=== PATIENT | female | born 1990 | race Caucasian/White ===

== ENCOUNTER 2018-08-31 21:23 | Emergency (ER) | payer OTHER ==
[2018-08-31 21:33] VITALS: RESP 20; TEMP 98.5
[2018-08-31] MEDS ORDERED: MORPHINE SULFATE 4 MG/ML SYRINGE IM STA (23:06)
[2018-08-31] MEDS ORDERED: KETOROLAC 30 MG/ML 1 ML VIAL IM STA (23:06)
--- NOTE | 2018-08-31 23:10 | ED ---
General Adult HPI - General Chief complaint: Dental/Oral Stated complaint: dental pain Time Seen by Provider: 08/31/18 22:22 Source: patient, RN notes reviewed, old records reviewed Mode of arrival: ambulatory Limitations: no limitations - History of Present Illness Initial comments: 27-year-old female presenting for evaluation of left lower abdominal pain. Patient had initial work done 2 days ago with drilling and root canal. She has a temporary filling and left posterior molar. She's had increased pain over the past 24 hours. She is currently on 800 mg of Motrin as well as amoxicillin. Denies fever or chills. Pain is localized to the affected tooth and associated jaw. No swelling. No drainage. Patient is otherwise healthy. Denies pre gnancy. - Related Data Home Medications Medication Instructions Recorded Confirmed Acetaminophen [Tylenol] 1,000 mg PO Q4-6H PRN 08/31/18 08/31/18 Amitriptyline HCl [Elavil] 25 mg PO HS 08/31/18 08/31/18 Ibuprofen [Motrin] 800 mg PO Q68H PRN 08/31/18 08/31/18 Pregabalin [Lyrica] 75 mg PO HS 08/31/18 08/31/18 Topiramate [Topamax] 50 mg PO BID 08/31/18 08/31/18 Allergies Allergy/AdvReac Type Severity Reaction Status Date / Time Sulfa (Sulfonamide Allergy Rash/Hives Verified 08/31/18 22:54 Antibiotics) Review of Systems ROS Statement: Those systems with pertinent positive or pertinent negative responses have been documented in the HPI. ROS Other: All systems not noted in ROS Statement are negative. Past Medical History Past Medical History: No Reported History History of Any Multi-Drug Resistant Organisms: None Reported Additional Past Surgical History / Comment(s): tarsal tunnel release Past Psychological History: No Psychological Hx Reported Smoking Status: Never smoker Past Alcohol Use History: Occasional Past Drug Use History: None Reported General Exam Limitations: no limitations General appearance: alert, in no apparent distress Head exam: Present: atraumatic, normocephalic Eye exam: Present: normal appearance, PERRL ENT exam: Present: other (Temporary filling Following left lower molar, no abscess, no cellulitis. No facial swelling) Neck exam: Present: normal inspection. Absent: tenderness, meningismus Respiratory exam: Present: normal lung sounds bilaterally. Absent: respiratory distress, wheezes Cardiovascular Exam: Present: regular rate, normal rhythm GI/Abdominal exam: Present: soft. Absent: distended, tenderness, guarding Course Vital Signs 08/31/18 21:29 Temperature 98.5 F Pulse Rate 88 Respiratory 20 Rate Blood Pressure 140/87 O2 Sat by Pulse 100 Oximetry Medical Decision Making - Medical Decision Making 27-year-old female requiring pain control for left lower molar status post root canal with temporary filling. No signs of infection. Patient is on antibiotics. She has an appointment in the morning for dental follow-up. She is seen at 11 PM. She is given a dose of Toradol and morphine in the emergency department. She will follow-up with her dentist in the morning as scheduled. Disposition Clinical Impression: Toothache, Acute pulpitis Disposition: HOME SELF-CARE Condition: Good Instructions (If sedation given, give patient instructions): Toothache (ED), Dental Caries (ED) Additional Instructions: Please follow up with your dentist in the morning. Is patient prescribed a controlled substance at d/c from ED?: No Referrals: Lucy Gale DO [Primary Care Provider] - 1-2 days Time of Disposition: 23:09
[2018-09-01 00:02] VITALS: BP 130/68; PULSE 90
== END 2018-08-31 23:50 | disposition home or self-care (01) ==
LOC: EC 21:23
DX: K04.01 Reversible pulpitis (principal); Z79.899 Other long term (current) drug therapy; Z88.2 Allergy status to sulfonamides
CPT/HCPCS: 99283; 96372 ×2; J2270; J1885

== ENCOUNTER 2019-06-13 21:10 | Outpatient (CLI) | payer BC ==
[2019-06-13 22:57] VITALS: BP 147/83; PULSE 122; RESP 18; TEMP 97.7
--- NOTE | 2019-06-16 14:38 | P.MSEPDOC ---
Presenting Problems - Arrival Data Date of Arrival on Unit: 06/13/19 Time of Arrival on Unit: 21:10 Mode of Transport: Ambulatory - Complaint OB-Reason for Admission/Chief Complaint: Possible Onset of Labor Comment: contraction onset 1929 and 5-6 min apart Medical History - Information : 1 Para: 0 Term: 0 : 0 Abortions: Spontaneous or Elective: 0 Number of Living Children: 0 - Gestational Age Gestational Age by SANDEEP (wks/days): 36 Weeks and 1 Days Review of Systems - Review of Systems Constitutional: No problems Breast: No problems ENT: No problems Cardiovascular: No problems Respiratory: No problems Gastrointestinal: No problems Genitourinary: No problems Musculoskeletal: No problems Neurological: No problems Skin: No problems Vital Signs - Temperature Temperature: 97.7 F Temperature Source: Temporal Artery Scan - Pulse Right Pulse Oximetery Pulse Rate: 122 - Respirations Respiratory Rate: 18 Oxygen Delivery Method: Room Air O2 Sat by Pulse Oximetry: 97 - Blood Pressure Right Arm Blood Pressure: 147/83 Blood Pressure Mean: 104 Blood Pressure Source: Automatic Cuff - Comment Vital Signs Comment: repeat BP and HR - 119/[address] Kinney in unit and notified of vital signs Medical Screen Scoring (Pre) - Cervical Exam Dilation: 1-3 cm = 1 Membranes: Intact - Uterine Contractions Frequency: > 5 minutes apart = 1 Duration: N/A Intensity: N/A - Maternal Vital Signs Maternal Temperature: N/A Maternal Blood Pressure: N/A Signs of Preeclampsia: N/A Maternal Respirations: N/A - Maternal Trauma Maternal Trauma: N/A - Assessment - Baby A Baseline FHR: 140 Heart Rate - NICHD Category: Category I (Normal) = 0 NST: Reactive Position: N/A Station: N/A - Total Score - Baby A Total Score - Baby A: 2 - Total Score - Baby B Total Score - Baby B: 2 - Total Score - Baby C Total Score - Baby C: 2 - Level of Risk - Baby A Level of Risk - Baby A: Low (0-5) - Level of Risk - Baby B Level of Risk - Baby B: Low (0-5) - Level of Risk - Baby C Level of Risk - Baby C: Low (0-5) Physician Notification (Pre) - Physician Notified Physician Notified Date: 06/13/19 Physician Notified Time: 21:44 New Order Received: Yes - Notification Comment Comment: order to recheck pts cervix after one hour if still the same okay to discharge with instructions Disposition - Disposition OB Disposition: Discharge to home Discharge Date: 06/13/19 Discharge Time: 22:35 I agree with the RN Medical Screening Exam: Yes Risk & Benefit of care provided described in d/c instruction: Yes Diagnosis: FALSE LABOR BEFORE 37 COMPLETED WEEKS OF GEST, THIRD TRI
== END 2019-06-13 22:35 | disposition home or self-care (01) ==
LOC: FBPOP 21:10
PROVIDERS: ATTEND Obstetrics & Gynecology Obstetrics
DX: O47.03 False labor before 37 completed weeks of gestation, third trimester (principal); Z3A.36 36 weeks gestation of pregnancy
CPT/HCPCS: 59025; 99213

== ENCOUNTER 2019-06-25 17:19 | Outpatient (CLI) | payer BC ==
[2019-06-25 19:09] VITALS: BP 123/84; PULSE 113; RESP 16; TEMP 97.9
--- NOTE | 2019-06-27 13:13 | P.MSEPDOC ---
Presenting Problems - Arrival Data Date of Arrival on Unit: 06/25/19 Time of Arrival on Unit: 18:46 Mode of Transport: Ambulatory - Complaint OB-Reason for Admission/Chief Complaint: Possible Onset of Labor Medical History - Information : 1 Para: 0 Term: 0 : 0 Abortions: Spontaneous or Elective: 0 Number of Living Children: 0 - Gestational Age Gestational Age by SANDEEP (wks/days): 37 Weeks and 6 Days Review of Systems - Review of Systems Constitutional: No problems Breast: No problems ENT: No problems Cardiovascular: No problems Respiratory: No problems Gastrointestinal: No problems Genitourinary: No problems Musculoskeletal: No problems Neurological: No problems Skin: No problems Vital Signs - Temperature Temperature: 97.9 F Temperature Source: Tympanic - Pulse Right Brachial Pulse Rate: 113 Pulse Assessment Method: Automatic Cuff - Respirations Respiratory Rate: 16 Oxygen Delivery Method: Room Air O2 Sat by Pulse Oximetry: 96 - Blood Pressure Right Arm Blood Pressure: 123/84 Blood Pressure Mean: 97 Blood Pressure Source: Automatic Cuff - Comment Vital Signs Comment: Pt states that she has not been feeling well and took some tylenol cold and sinus a litle while ago Medical Screen Scoring (Pre) - Cervical Exam Dilation: 1-3 cm = 1 Membranes: Intact - Uterine Contractions Frequency: > 5 minutes apart = 1 Duration: > 40 seconds = 2 Intensity: N/A - Maternal Vital Signs Maternal Temperature: N/A Maternal Blood Pressure: N/A Signs of Preeclampsia: N/A Maternal Respirations: N/A - Maternal Trauma Maternal Trauma: N/A - Assessment - Baby A Baseline FHR: 140 Heart Rate - NICHD Category: Category I (Normal) = 0 NST: Reactive Position: N/A Station: N/A - Total Score - Baby A Total Score - Baby A: 4 - Total Score - Baby B Total Score - Baby B: 4 - Total Score - Baby C Total Score - Baby C: 4 - Level of Risk - Baby A Level of Risk - Baby A: Low (0-5) - Level of Risk - Baby B Level of Risk - Baby B: Low (0-5) - Level of Risk - Baby C Level of Risk - Baby C: Low (0-5) Physician Notification (Pre) - Physician Notified Physician Notified Date: 06/25/19 Physician Notified Time: 18:46 New Order Received: Yes - Notification Comment Comment: D/c home to f/up with this week Disposition - Disposition OB Disposition: Physician follow up in office, Discharge to home Discharge Date: 06/25/19 Discharge Time: 18:50 I agree with the RN Medical Screening Exam: Yes Risk & Benefit of care provided described in d/c instruction: Yes Diagnosis: FALSE LABOR AT OR AFTER 37 COMPLETED WEEKS OF GESTATION Additional Diagnoses: O47.1
== END 2019-06-25 19:12 | disposition home or self-care (01) ==
LOC: FBPOP 17:19
PROVIDERS: ATTEND Obstetrics & Gynecology
DX: O47.1 False labor at or after 37 completed weeks of gestation (principal); Z3A.37 37 weeks gestation of pregnancy
CPT/HCPCS: 59025; 99213

== ENCOUNTER 2019-07-01 22:18 | Inpatient (IN) | payer BC ==
[2019-07-02] MEDS ORDERED: METHYLERGONOVINE 0.2 MG/ML 1 ML AMP IM PRN (00:56)
[2019-07-02] MEDS ORDERED: CARBOPROST TROMETHAMINE 250 MCG/ML 1 ML AMP IM PRN (00:56)
[2019-07-02] MEDS ORDERED: OXYTOCIN 10 UNIT/ML 1 ML VIAL IM PRN (00:56)
[2019-07-02] MEDS ORDERED: LIDOCAINE 0.5% (PF) 5 MG/ML (50 ML SDV) SQ PRN (00:56)
[2019-07-02] MEDS ORDERED: TERBUTALINE 1 MG/ML VIAL SQ PRN (00:56)
[2019-07-02] MEDS: LACTATED RINGERS 1,000 ML IV SCH ×3 (01:17→06:32)
[2019-07-02 01:46] LABS: Basophils % (A) 0 %; Eosinophils % (A) 0 %; HCT 41.8 % (34.0-46.0); HGB 13.9 gm/dL (11.4-16.0); Lymphocytes # (A) 1.8 k/uL (1.0-4.8); Lymphocytes % (A) 11 %; MCH 28.9 pg (25.0-35.0); MCHC 33.2 g/dL (31.0-37.0); Mean Platelet Volume 9.2; Monocytes # (A) 0.8 k/uL (0-1.0); Monocytes % (A) 5 %; Neutrophils # (A) 13.9 k/uL (1.3-7.7); Neutrophils % (A) 83 %; Platelet Count 198 k/uL (150-450); RDW 14.1 % (11.5-15.5); WBC 16.8 k/uL (3.8-10.6)
[2019-07-02] MEDS ORDERED: SODIUM CHLORIDE 0.9% 100 ML BAG ONE (02:04)
[2019-07-02] MEDS ORDERED: ROPIVACAINE 5MG/ML 20ML VIAL ONE (02:04)
[2019-07-02] MEDS ORDERED: fentaNYL (PF) 50 MCG/ML 5 ML AMP ONE (02:04)
[2019-07-02] MEDS ORDERED: OXYTOCIN 30 UNITS/500 ML NS 30 UNIT in SALINE 1 500ML.BAG IV SCH (07:00)
--- NOTE | 2019-07-02 09:56 | P.HPOB ---
History of Present Illness H&P Date: 07/02/19 Chief Complaint: Labor at 38-6/7 weeks This is a 28-year-old 1 para 0 woman with an estimated due date of 07/10/2019 based on LMP consistent with second trimester ultrasound. She presents with ongoing irregular but very painful uterine contractions. She's been seen on multiple occasions on labor and delivery triage with latent labor and no cervical change. On presentation she has made cervical change from 3-4 cm and is having irregular but very painful contractions. She is therefore admitted. She denies leakage of fluids or vaginal bleeding. She has had good movement. Her has been essentially on remarkable. 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 She's had evaluation with her neurologist who sees no contraindication to labor, anesthesia or vaginal delivery. Laboratory data: Blood type O positive, antibody screen negative, rubella nonimmune, V-year-old nonreactive, hep Jacquelyn surface antigen negative, HIV negative, gonorrhea and clinically cultures negative, glucose tolerance testing negative, group B strep negative. She did receive the flu vaccine. Review of Systems All systems: negative Past Medical History Past Medical History: No Reported History Additional Past Medical History / Comment(s): chronic migranes, thoracic spine cyst, T3-T9 History of Any Multi-Drug Resistant Organisms: None Reported Past Surgical History: No Surgical Hx Reported Additional Past Surgical History / Comment(s): tarsal tunnel release Past Anesthesia/Blood Transfusion Reactions: No Reported Reaction Past Psychological History: No Psychological Hx Reported Smoking Status: Former smoker Past Alcohol Use History: Occasional Past Drug Use History: None Reported - Past Family History Father Family Medical History: No Reported History, Congestive Heart Failure (CHF) Medications and Allergies Home Medications Medication Instructions Recorded Confirmed Type Ondansetron [Zofran] 4 mg PO Q12HR PRN 06/13/19 07/01/19 History Pnv No.95/Ferrous Fum/Folic AC 1 each PO DAILY 06/13/19 07/01/19 History [ Multivitamin Tablet] Allergies Allergy/AdvReac Type Severity Reaction Status Date / Time Sulfa (Sulfonamide Allergy Rash/Hives Verified 07/01/19 22:28 Antibiotics) Exam Vital Signs Temp Pulse Resp BP Pulse Ox 07/02/19 01:00 98.5 F 107 H 16 127/77 98 07/02/19 00:54 98.5 F 107 H 16 127/77 98 Intake and Output 07/01/19 07/02/19 07/02/19 22:59 06:59 14:59 Output Total 200 Balance -200 Output: Urine 200 Other: Weight 97.522 kg 97.522 kg Targeted physical exam is performed. This is a visibly gravid, female who is resting comfortably with an epidural anesthetic in place. She complains of a very recent gush of fluid when she was vomiting. She is examined and there is some bloody show. Cervix is 4-1/2 cm dilated, 70% effaced, -2 station. Bulging membranes are noted. Artificial rupture membranes is undertaken and copious clear fluid is obtained. At the time of this dictation heart tones are category 2 however they have been category 1 the majority of her evaluation thus far. She is having some decreased variability at this time. She is chris with Pitocin augmentation every 2-3 minutes. Results Result Diagrams: 07/02/19 01:16 Abnormal Lab Results - Last 24 Hours (Table) 07/02/19 Range/Units 01:16 WBC 16.8 H (3.8-10.6) k/uL Neutrophils # 13.9 H (1.3-7.7) k/uL Assessment and Plan (1) Term Current Visit: Yes Status: Acute Code(s): Z34.90 - ENCNTR FOR SUPRVSN OF NORMAL , UNSP, UNSP TRIMESTER SNOMED Code(s): 00139312 (2) Spontaneous onset of labor Current Visit: Yes Status: Acute Code(s): EKK8916 - SNOMED Code(s): 29603429 (3) Rubella non-immune status, antepartum Current Visit: Yes Status: Acute Code(s): O99.89 - OTH DISEASES AND CONDITIONS COMPL PREG/CHLDBRTH; Z28.3 - UNDERIMMUNIZATION STATUS SNOMED Code(s): 921997131 Plan: at 38-6/7 weeks' gestation and admitted in active labor after prolonged latent labor. heart tones are overall reassuring. She is currently comfortable with epidural anesthetic in place and Pitocin augmentation. Anticipate normal spontaneous vaginal delivery. She is group B strep negative and Rh+.
[2019-07-02] MEDS ORDERED: LANOLIN CREAM 5 GM TUBE TOPICAL PRN (12:56)
[2019-07-02] MEDS ORDERED: ACETAMINOPHEN TAB 325 MG TAB PO PRN (12:56)
[2019-07-02] MEDS ORDERED: diphenhydrAMINE 50 MG CAP PO PRN (12:56)
[2019-07-02] MEDS ORDERED: MEASLES-MUMPS-RUBELLA VACC/PF 12,500 UNIT/0.5 ML VIAL SQ ONE (12:56)
[2019-07-02] MEDS ORDERED: ZOLPIDEM 5 MG TAB PO PRN (12:56)
[2019-07-02] MEDS ORDERED: diphenhydrAMINE 25 MG CAP PO PRN (12:56)
[2019-07-02] MEDS ORDERED: HYDROCORTISONE 2.5% RECTAL CREAM 30 GM TUBE RECTAL PRN (12:56)
[2019-07-02] MEDS ORDERED: diphenhydrAMINE 50 MG/ML 1 ML VIAL IVP PRN ×2 (12:56)
[2019-07-02] MEDS ORDERED: BENZOCAINE/MENTHOL SPRAY 1 GM/SPRAY AEROSOL TOPICAL PRN (12:56)
[2019-07-02] MEDS ORDERED: WITCH HAZEL 1 EACH MED..PAD TOPICAL PRN (12:56)
[2019-07-02] MEDS ORDERED: SIMETHICONE 80 MG CHEWABLE PO PRN (12:56)
--- NOTE | 2019-07-02 12:56 | P.PROBDLV ---
Vaginal Delivery Note - . Vaginal Delivery Note: Findings: Female in the vertex left occiput anterior position with nuchal cord 1. 8 pounds, 8 ounces, 3845 g. Apgars 7 at 1 minute and 9 at 5 minutes. Copious bloody fluid with delivery of the infant. Intact, three-vessel cord placenta with scant marginal adherent dark clot. EBL approximately 350 mL's. Second-degree midline episiotomy repaired. Delivery summary: This is a 28-year-old 1 para 0 woman who presented in spontaneous active labor at 38-6/7 weeks gestation after some prolonged latent labor. On admission she was 4+ centimeters dilated and received an epidural anesthetic. She had category 1 heart tones. She progressed to 5 cm at which time artificial rupture of membranes is undertaken. There was moderate to large amount of bloody show however the amniotic fluid was noted to be clear. She then had a rather rapid progression on the over the next 3 hours to complete cervical dilation. She had category 1 and category 2 heart tones throughout. She had good descent of the vertex with maternal effort and with was repositioned, prepped and draped in the [place]hawn position. With additional maternal effort of the head did not progress significantly from the therefore lidocaine was infused in the perineum and a small midline episiotomy was cut to facilitate delivery of the head in anticipation of possible shoulder dystocia. With the next maternal effort the head did deliver spontaneously from the left occiput anterior position. The nuchal cord 1 was reduced. The anterior followed by the posterior shoulders were delivered rapidly and without difficulty. With delivery of the infant's body a copious amount of port-wine stained fluid was noted. The infant was placed on the maternal abdomen and the nose and mouth were further bulb suctioned. After waiting approximately 2 minutes the cord was clamped and cut. Apgars were 7 at 1 minute and 9 at 5 minutes. Weight was 8 lbs. 8 oz., 3845 g. An intact, three-vessel cord placenta was then expressed after a 4 minute third stage of l abor. The placenta was inspected and there was a scant crescent of dark adherent clot consistent with possible very small marginal abruption. 3-0 Vicryl was utilized to repair the second-degree midline laceration in the usual fashion. The patient did have an episode of uterine atony that was managed with intravenous Pitocin and bimanual massage. The bladder was drained for approximately 100 mL of clear urine at that time. The uterus did firm down although she was also given prophylactically a single dose of IM Methergine. Estimated blood loss is approximately 350 mL's. The rest of the vagina was inspected and no further lacerations were noted both mother and were doing well post delivery in the room
[2019-07-02] MEDS ORDERED: OXYTOCIN 20 UNITS/1000 ML NS 1,000 ML IV SCH (13:00)
[2019-07-02] MEDS: IBUPROFEN 600 MG TAB PO PRN ×2 (13:36→19:42)
[2019-07-02] MEDS: SENNOSIDES-DOCUSATE SODIUM 1 EACH TAB PO SCH (19:42)
[2019-07-02 23:36] VITALS: RESP 16
[2019-07-03] MEDS: IBUPROFEN 600 MG TAB PO PRN ×3 (02:08→14:35)
[2019-07-03 07:58] LABS: Basophils % (A) 0 %; Eosinophils # (A) 0.1 k/uL (0-0.7); Eosinophils % (A) 0 %; HCT 28.7 % (34.0-46.0); Lymphocytes # (A) 1.8 k/uL (1.0-4.8); Lymphocytes % (A) 16 %; MCH 29.8 pg (25.0-35.0); MCHC 33.8 g/dL (31.0-37.0); MCV 88.2 fL (80.0-100.0); Mean Platelet Volume 9.7; Monocytes # (A) 0.5 k/uL (0-1.0); Monocytes % (A) 4 %; Neutrophils # (A) 9.1 k/uL (1.3-7.7); Neutrophils % (A) 77 %; Platelet Count 185 k/uL (150-450); RBC 3.26 m/uL (3.80-5.40); RDW 14.4 % (11.5-15.5); WBC 11.8 k/uL (3.8-10.6)
[2019-07-03 08:07] LABS: HGB 9.7 gm/dL (11.4-16.0)
[2019-07-03 08:15] VITALS: BP 106/76; PULSE 116; TEMP 97.8
[2019-07-03] MEDS: SENNOSIDES-DOCUSATE SODIUM 1 EACH TAB PO SCH (08:34)
--- NOTE | 2019-07-03 10:27 | P.DS ---
Providers Date of admission: 07/02/19 00:58 Expected date of discharge: 07/03/19 Attending physician: Jess Kinney Primary care physician: Stated None - Discharge Diagnosis(es) (1) Rubella non-immune status, antepartum Current Visit: Yes Status: Acute (2) Spontaneous onset of labor Current Visit: Yes Status: Acute (3) Term Current Visit: Yes Status: Acute (4) Status post vaginal delivery Current Visit: Yes Status: Acute Hospital Course: This pleasant 28-year-old 1 para 0 at 38-6/7 weeks presented to labor and delivery with complaints of regular painful contractions. Patient was noted to be 5 cm upon admission. Patient has routine care that has been essentially uncomplicated. Patient was admitted and requested epidural placement. Epidural was placed without difficulty by the anesthesia department. Patient progressed to complete began pushing and had a normal spontaneous vaginal delivery of a viable female with a weight of 8 lbs. 8 oz. and Apgars of 7/9 at one and 5 minutes or sexually. Patient did sustain a second- degree midline laceration. This was repaired in the usual fashion. Patient's course has been uneventful. On this day #1 she is ambulating and voiding without difficulty. She is tolerating a regular diet without nausea or vomiting. She states her pain is well-controlled and she does wish discharge home at 24 hours. Patient Condition at Discharge: Good Plan - Discharge Summary New Discharge Prescriptions: No Action Pnv No.95/Ferrous Fum/Folic AC [ Multivitamin Tablet] 1 each PO DAILY Ondansetron [Zofran] 4 mg PO Q12HR PRN PRN Reason: Nausea Discharge Medication List Ondansetron [Zofran] 4 mg PO Q12HR PRN 06/13/19 [History] Pnv No.95/Ferrous Fum/Folic AC [ Multivitamin Tablet] 1 each PO DAILY 06/13/19 [History] Follow up Appointment(s)/Referral(s): Jess Kinney DO [Doctor of Osteopathic Medicine] - 4 Weeks Patient Instructions/Handouts: Vaginal Delivery (DC), Vaginal Delivery (GEN) Discharge Disposition: HOME SELF-CARE
== END 2019-07-03 15:30 | disposition home or self-care (01) | DRG 806 ==
LOC: FBPOP 22:18 → 4FBP 07-02 00:58
PROVIDERS: ADMIT Obstetrics & Gynecology; ATTEND Obstetrics & Gynecology Obstetrics
PROC: 10E0XZZ Delivery of Products of Conception, External Approach (ICD-10-PCS; principal; 2019-07-02)
PROC: 3E0134Z Introduction of Serum, Toxoid and Vaccine into Subcutaneous Tissue, Percutaneous Approach (ICD-10-PCS; principal; 2019-07-02)
PROC: 00HU33Z Insertion of Infusion Device into Spinal Canal, Percutaneous Approach (ICD-10-PCS; principal; 2019-07-02)
PROC: 0KQM0ZZ Repair Perineum Muscle, Open Approach (ICD-10-PCS; principal; 2019-07-02)
PROC: 3E0R3BZ Introduction of Anesthetic Agent into Spinal Canal, Percutaneous Approach (ICD-10-PCS; principal; 2019-07-02)
PROC: 0W8NXZZ Division of Female Perineum, External Approach (ICD-10-PCS; principal; 2019-07-02)
DX: O69.81X0 Labor and delivery complicated by cord around neck, without compression, not applicable or unspecified (principal); O44.23 Partial placenta previa NOS or without hemorrhage, third trimester; Z37.0 Single live birth; O70.1 Second degree perineal laceration during delivery; O99.89 Other specified diseases and conditions complicating pregnancy, childbirth and the puerperium; M79.7 Fibromyalgia; O62.2 Other uterine inertia; Z23 Encounter for immunization; Z28.3 Underimmunization status; Z3A.38 38 weeks gestation of pregnancy; Z79.899 Other long term (current) drug therapy; Z87.891 Personal history of nicotine dependence
CPT/HCPCS: 59025; 85025; 86850; 86900; 86901; 90471; 90707; 99213

== ENCOUNTER 2020-11-21 21:10 | Emergency (ER) | payer BC ==
[2020-11-21 21:17] VITALS: TEMP 97.8
[2020-11-21] MEDS ORDERED: SODIUM CHLORIDE 0.9% 500 ML 500 ML IV STA (21:28)
[2020-11-21] MEDS ORDERED: ONDANSETRON 4 MG/2 ML VIAL IVP STA (21:44)
[2020-11-21 22:17] LABS: Basophils % (A) 0 %; Eosinophils # (A) 0.2 k/uL (0-0.7); Eosinophils % (A) 2 %; HCT 46.3 % (34.0-46.0); HGB 16.5 gm/dL (11.4-16.0); Lymphocytes # (A) 1.3 k/uL (1.0-4.8); Lymphocytes % (A) 10 %; MCH 29.9 pg (25.0-35.0); MCHC 35.6 g/dL (31.0-37.0); Mean Platelet Volume 8.2; Monocytes # (A) 0.5 k/uL (0-1.0); Monocytes % (A) 4 %; Neutrophils # (A) 11.1 k/uL (1.3-7.7); Neutrophils % (A) 84 %; Platelet Count 284 k/uL (150-450); RBC 5.51 m/uL (3.80-5.40); RDW 12.9 % (11.5-15.5); WBC 13.3 k/uL (3.8-10.6)
[2020-11-21 22:36] LABS: ALT 35 U/L (4-34); AST 29 U/L (14-36); African American GFR (CKD) >90 (>60 ml/min/1.73 sqM); Albumin 4.7 g/dL (3.5-5.0); Alkaline Phosphatase 76 U/L (38-126); Amylase 49 U/L (30-110); Anion Gap 10 mmol/L; Blood Urea Nitrogen 17 mg/dL (7-17); Calcium 9.6 mg/dL (8.4-10.2); Carbon Dioxide 27 mmol/L (22-30); Chloride 103 mmol/L (98-107); Glucose 113 mg/dL (74-99); Lipase 30 U/L (23-300); Non-African American GFR(CKD) >90 (>60 ml/min/1.73 sqM); Potassium 4.1 mmol/L (3.5-5.1); Sodium 140 mmol/L (137-145); Total Bilirubin 0.7 mg/dL (0.2-1.3); Total Protein 7.5 g/dL (6.3-8.2)
--- NOTE | 2020-11-21 22:41 | ED ---
Nausea/Vomiting/Diarrhea HPI - General Chief complaint: Nausea/Vomiting/Diarrhea Stated complaint: N/V Time Seen by Provider: 11/21/20 21:28 Source: patient Mode of arrival: ambulatory Limitations: no limitations - History of Present Illness MD complaint: nausea, vomiting, diarrhea, abdominal pain Onset/Timin -: days(s) Description of Vomiting: food contents Description of Diarrhea: water Associated Abdominal Pain: Yes Location: diffuse Severity: moderate Quality: cramping Consistency: intermittent, now resolved Improves with: none Worsens with: none Associated Symptoms: nausea/vomiting - Related Data Previous Rx's Medication Instructions Recorded Ondansetron Odt [Zofran ODT] 4 mg PO Q8HR PRN #10 tab 11/22/20 Allergies Allergy/AdvReac Type Severity Reaction Status Date / Time kiwi Allergy Swelling Verified 11/21/20 21:52 Sulfa (Sulfonamide Allergy Rash/Hives Verified 11/21/20 21:52 Antibiotics) Review of Systems ROS Statement: Those systems with pertinent positive or pertinent negative responses have been documented in the HPI. ROS Other: All systems not noted in ROS Statement are negative. 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 History of Any Multi-Drug Resistant Organisms: None Reported Past Surgical History: No Surgical Hx Reported Additional Past Surgical History / Comment(s): tarsal tunnel release, Past Anesthesia/Blood Transfusion Reactions: No Reported Reaction Past Psychological History: Anxiety Smoking Status: Former smoker Past Alcohol Use History: Occasional Past Drug Use History: None Reported - Past Family History Father Family Medical History: No Reported History, Congestive Heart Failure (CHF) General Exam Limitations: no limitations General appearance: alert, in no apparent distress Head exam: Present: atraumatic, normocephalic Eye exam: Present: normal appearance. Absent: scleral icterus, conjunctival injection Neck exam: Present: normal inspection Respiratory exam: Present: normal lung sounds bilaterally. Absent: respiratory distress, wheezes, rales, rhonchi, stridor Cardiovascular Exam: Present: regular rate, normal rhythm, normal heart sounds. Absent: systolic murmur, diastolic murmur, rubs, gallop GI/Abdominal exam: Present: soft. Absent: distended, tenderness, guarding, rebound, rigid, mass, pulsatile mass, hernia Extremities exam: Present: normal inspection, normal capillary refill. Absent: pedal edema, calf tenderness Back exam: Present: normal inspection. Absent: CVA tenderness (R), CVA tenderness (L) Neurological exam: Present: alert Skin exam: Present: warm, dry, intact, normal color. Absent: rash Course Vital Signs 11/21/20 11/22/20 21:13 01:03 Temperature 97.8 F Pulse Rate 100 Respiratory 18 18 Rate Blood Pressure 124/91 O2 Sat by Pulse 99 Oximetry Medical Decision Making - Lab Data Result diagrams: 11/21/20 22:01 11/21/20 22:01 Lab Results 11/21/20 11/21/20 11/22/20 Range/Units 22:01 22:01 00:44 WBC 13.3 H (3.8-10.6) k/uL RBC 5.51 H (3.80-5.40) m/uL Hgb 16.5 H (11.4-16.0) gm/dL Hct 46.3 H (34.0-46.0) % MCV 84.0 (80.0-100.0) fL MCH 29.9 (25.0-35.0) pg MCHC 35.6 (31.0-37.0) g/dL RDW 12.9 (11.5-15.5) % Plt Count 284 (150-450) k/uL MPV 8.2 Neutrophils % 84 % Lymphocytes % 10 % Monocytes % 4 % Eosinophils % 2 % Basophils % 0 % Neutrophils # 11.1 H (1.3-7.7) k/uL Lymphocytes # 1.3 (1.0-4.8) k/uL Monocytes # 0.5 (0-1.0) k/uL Eosinophils # 0.2 (0-0.7) k/uL Basophils # 0.0 (0-0.2) k/uL Sodium 140 (137-145) mmol/L Potassium 4.1 (3.5-5.1) mmol/L Chloride 103 (98-107) mmol/L Carbon Dioxide 27 (22-30) mmol/L Anion Gap 10 mmol/L BUN 17 (7-17) mg/dL Creatinine 0.68 (0.52-1.04) mg/dL Est GFR (CKD-EPI)AfAm >90 (>60 ml/min/1.73 sqM) Est GFR (CKD-EPI)NonAf >90 (>60 ml/min/1.73 sqM) Glucose 113 H (74-99) mg/dL Calcium 9.6 (8.4-10.2) mg/dL Total Bilirubin 0.7 (0.2-1.3) mg/dL AST 29 (14-36) U/L ALT 35 H (4-34) U/L Alkaline Phosphatase 76 (38-126) U/L Total Protein 7.5 (6.3-8.2) g/dL Albumin 4.7 (3.5-5.0) g/dL Amylase 49 (30-110) U/L Lipase 30 (23-300) U/L Urine Color Yellow Urine Appearance Cloudy H (Clear) Urine pH 5.5 (5.0-8.0) Ur Specific Sobieski 1.039 H (1.001-1.035) Urine Protein Trace H (Negative) Urine Glucose (UA) Negative (Negative) Urine Ketones 2+ H (Negative) Urine Blood Negative (Negative) Urine Nitrite Negative (Negative) Urine Bilirubin 1+ H (Negative) Urine Urobilinogen <2.0 (<2.0) mg/dL Ur Leukocyte Esterase Moderate H (Negative) Urine RBC 8 H (0-5) /hpf Urine WBC 16 H (0-5) /hpf Ur Squamous Epith Cells 6 H (0-4) /hpf Amorphous Sediment Few H (None) /hpf Urine Mucus Many H (None) /hpf Urine HCG, Qual (Not Detectd) 11/22/20 Range/Units 00:44 WBC (3.8-10.6) k/uL RBC (3.80-5.40) m/uL Hgb (11.4-16.0) gm/dL Hct (34.0-46.0) % MCV (80.0-100.0) fL MCH (25.0-35.0) pg MCHC (31.0-37.0) g/dL RDW (11.5-15.5) % Plt Count (150-450) k/uL MPV Neutrophils % % Lymphocytes % % Monocytes % % Eosinophils % % Basophils % % Neutrophils # (1.3-7.7) k/uL Lymphocytes # (1.0-4.8) k/uL Monocytes # (0-1.0) k/uL Eosinophils # (0-0.7) k/uL Basophils # (0-0.2) k/uL Sodium (137-145) mmol/L Potassium (3.5-5.1) mmol/L Chloride (98-107) mmol/L Carbon Dioxide (22-30) mmol/L Anion Gap mmol/L BUN (7-17) mg/dL Creatinine (0.52-1.04) mg/dL Est GFR (CKD-EPI)AfAm (>60 ml/min/1.73 sqM) Est GFR (CKD-EPI)NonAf (>60 ml/min/1.73 sqM) Glucose (74-99) mg/dL Calcium (8.4-10.2) mg/dL Total Bilirubin (0.2-1.3) mg/dL AST (14-36) U/L ALT (4-34) U/L Alkaline Phosphatase (38-126) U/L Total Protein (6.3-8.2) g/dL Albumin (3.5-5.0) g/dL Amylase (30-110) U/L Lipase (23-300) U/L Urine Color Urine Appearance (Clear) Urine pH (5.0-8.0) Ur Specific Sobieski (1.001-1.035) Urine Protein (Negative) Urine Glucose (UA) (Negative) Urine Ketones (Negative) Urine Blood (Negative) Urine Nitrite (Negative) Urine Bilirubin (Negative) Urine Urobilinogen (<2.0) mg/dL Ur Leukocyte Esterase (Negative) Urine RBC (0-5) /hpf Urine WBC (0-5) /hpf Ur Squamous Epith Cells (0-4) /hpf Amorphous Sediment (None) /hpf Urine Mucus (None) /hpf Urine HCG, Qual Not Detected (Not Detectd) Disposition Clinical Impression: Vomiting Disposition: HOME SELF-CARE Condition: Good Instructions (If sedation given, give patient instructions): Acute Nausea and Vomiting (ED) Prescriptions: Ondansetron Odt [Zofran ODT] 4 mg PO Q8HR PRN #10 tab PRN Reason: Nausea Is patient prescribed a controlled substance at d/c from ED?: No Referrals: Lucy Gale DO [Primary Care Provider] - 1-2 days
[2020-11-22 01:01] LABS: Amorphous Sediment,Urine Few /hpf; Appearance,Urine Cloudy (Clear); Bilirubin,Urine 1+ (Negative); Blood,Urine Negative (Negative); Color,Urine Yellow; Glucose,Urine (UA) Negative (Negative); Ketones,Urine 2+ (Negative); Leukocyte Esterase,Urine Moderate (Negative); Mucus,Urine Many /hpf; Nitrite,Urine Negative (Negative); PH, Urine 5.5 (5.0-8.0); Protein,Urine Trace (Negative); RBC,Urine 8 /hpf (0-5); Specific Gravity,Urine 1.039 (1.001-1.035); Squamous Epithelial Cell,Urine 6 /hpf (0-4); Urobilinogen,Urine <2.0 mg/dL (<2.0); WBC,Urine 16 /hpf (0-5)
[2020-11-22] MEDS ORDERED: ONDANSETRON 4 MG/2 ML VIAL IVP STA (01:41)
[2020-11-22 01:46] VITALS: BP 96/64; PULSE 87; RESP 16
== END 2020-11-22 01:55 | disposition home or self-care (01) ==
LOC: EC 21:10
DX: R11.10 Vomiting, unspecified (principal); R19.7 Diarrhea, unspecified; R10.84 Generalized abdominal pain; F41.9 Anxiety disorder, unspecified; Z87.891 Personal history of nicotine dependence
CPT/HCPCS: 36415; 80053; 82150; 83690; 85025; 81001; 81025; 99284; 96374; 96376; J2405 ×2

== ENCOUNTER → 2021-04-21 | Outpatient (CLI) | payer BC | END | disposition home or self-care (01) | LOC: LABWHC1 11:46 | PROVIDERS: ATTEND Obstetrics & Gynecology Obstetrics | DX: O20.0 Threatened abortion (principal); Z3A.00 Weeks of gestation of pregnancy not specified | CPT/HCPCS: 36415; 84702; 86850; 86900; 86901 ==

== ENCOUNTER → 2021-04-21 | Outpatient (CLI) | payer BC ==
--- NOTE | 2021-04-21 12:20 | US ---
EXAMINATION TYPE: Transabdominal DATE OF EXAM: 04/21/2021 11:36 AM COMPARISON: NONE CLINICAL HISTORY: O46.91 BLEEDING. Bleeding, cramping and pain for 3 days. EXAM PERFORMED: Transvaginal (TV) and Transabdominal (TA) EXAM MEASUREMENTS: GESTATIONAL AGE / DATING Physician Established: (7 weeks/1 days) EDC: 12/07/2021 Dates by LMP: LMP unknown Dates by First Scan: No previous this is first scan Dates by Current Scan for: (6 weeks/0 days) EDC: 12/15/2021 MATERNAL ANATOMY Uterus: Transabdominally: 9.6 x 4.5 x 6.1 cm Right Ovary: 2.7 x 1.5 x 3.2 cm Left Ovary: 2.4 x 1.5 x 1.8 cm Post CDS / Adnexa: WNL Presence of free fluid: No Presence of subchorionic bleed: No GESTATION / SURVEY CRL: (6 weeks/0 days) MSD: Gestational sac appears irregular and is located mid uterus. 5 weeks 2 days MSD Yolk Sac (normal less than 6mm): 0.18 cm Heart Rate: M-mode heart rate was unable to be performed due to patient movement and small size of fe tus; color doppler was able to detect cardiac activity during this exam. IUP: IUP seen today located mid uterus with an irregular gestational sac. Beta HcG (if available): Not available at this time IMPRESSION: Single intrauterine gestation estimated at 6 weeks 0 days gestation based on the current crown-rump l ength. 2. Cardiac activity is evident more reliable accurate heart rate could not be obtained at this time. Follow-up can be performed. 3. A gestational sac appears somewhat irregular and small. Consider serial hCG and follow-up ultrasou nd.
== END | disposition home or self-care (01) ==
LOC: RADUSWWP 10:36
PROVIDERS: ATTEND Obstetrics & Gynecology Obstetrics
DX: O26.891 Other specified pregnancy related conditions, first trimester (principal); R10.2 Pelvic and perineal pain; Z3A.01 Less than 8 weeks gestation of pregnancy
CPT/HCPCS: 76801; 76817

== ENCOUNTER → 2021-04-23 | Outpatient (CLI) | payer BC | LOC: LAB 13:41 | PROVIDERS: ATTEND Obstetrics & Gynecology Obstetrics | DX: O20.0 Threatened abortion (principal); Z3A.01 Less than 8 weeks gestation of pregnancy; Z88.2 Allergy status to sulfonamides; Z91.018 Allergy to other foods; Z87.891 Personal history of nicotine dependence | CPT/HCPCS: 84702 ==

== ENCOUNTER → 2021-04-28 | Outpatient (CLI) | payer BC ==
--- NOTE | 2021-04-28 09:02 | US ---
EXAMINATION TYPE: Transabdominal DATE OF EXAM: 04/28/2021 8:49 AM COMPARISON: US one week ago CLINICAL HISTORY: O20.0 Threatened ab, O46.91Antepartum hemorrhage. EXAM PERFORMED: Transvaginal (TV) and Transabdominal (TA) EXAM MEASUREMENTS: GESTATIONAL AGE / DATING Physician Established: (8 weeks/1 days) EDC: 12/07/2021 Dates by LMP: LMP unknown Dates by First Scan: (8 weeks/1 days) EDC: 12/07/2021 Dates by Current Scan for: No IUP seen at this time MATERNAL ANATOMY Uterus: 7.5 x 5.0 x 7.0 cm Right Ovary: 2.8 x 1.6 x 2.5 cm Left Ovary: 2.6 x 1.8 x 2.2 cm Post CDS / Adnexa: wnl Presence of free fluid: none GESTATION / SURVEY Endo measures 1.1 cm, is slightly irregular without vascularity. Heterogeneous anteverted uterus redemonstrated. Endometrium appears less thickened versus prior study with central nonsimple fluid suggesting blood product. No persistent anechoic central area to sugges t gestational sac. No remnant pole identified. No free fluid pelvic cul-de-sac. Both ovaries redemonstrated with scattered peripheral follicles. No suspicious adnexal lesions. IMPRESSION: Findings consistent with intrauterine demise and spontaneous as detailed a kasie
== END | disposition home or self-care (01) ==
LOC: RADUSWWP 08:17
PROVIDERS: ATTEND Obstetrics & Gynecology Obstetrics
DX: O20.0 Threatened abortion (principal); Z3A.00 Weeks of gestation of pregnancy not specified
CPT/HCPCS: 76801; 76817

== ENCOUNTER 2022-02-11 06:15 | Inpatient (IN) | payer BC ==
[2022-02-11] MEDS ORDERED: METHYLERGONOVINE 0.2 MG/ML 1 ML AMP IM PRN (06:29)
[2022-02-11] MEDS ORDERED: CARBOPROST TROMETHAMINE 250 MCG/ML 1 ML AMP IM PRN (06:29)
[2022-02-11] MEDS ORDERED: OXYTOCIN 10 UNIT/ML 1 ML VIAL IM PRN (06:29)
[2022-02-11] MEDS ORDERED: TERBUTALINE 1 MG/ML VIAL SQ PRN (06:29)
[2022-02-11] MEDS ORDERED: LIDOCAINE 0.5% (PF) 5 MG/ML (50 ML SDV) SQ PRN (06:29)
[2022-02-11] MEDS ORDERED: OXYTOCIN 30 UNITS/500 ML NS 30 UNIT in SALINE 1 500ML.BAG IV SCH ×2 (06:30→15:00)
[2022-02-11] MEDS: LACTATED RINGERS 1,000 ML IV SCH ×3 (06:58→12:53)
[2022-02-11 07:19] LABS: Basophils % (A) 0 %; Eosinophils # (A) 0.1 k/uL (0-0.7); Eosinophils % (A) 1 %; HCT 35.2 % (34.0-46.0); HGB 11.7 gm/dL (11.4-16.0); Lymphocytes # (A) 1.8 k/uL (1.0-4.8); Lymphocytes % (A) 21 %; MCH 27.9 pg (25.0-35.0); MCHC 33.2 g/dL (31.0-37.0); Mean Platelet Volume 9.7; Monocytes # (A) 0.4 k/uL (0-1.0); Monocytes % (A) 5 %; Neutrophils # (A) 6.1 k/uL (1.3-7.7); Neutrophils % (A) 72 %; Platelet Count 220 k/uL (150-450); RBC 4.18 m/uL (3.80-5.40); RDW 14.6 % (11.5-15.5); WBC 8.6 k/uL (3.8-10.6)
[2022-02-11] MEDS ORDERED: ACETAMINOPHEN TAB 325 MG TAB PO STA (08:26)
[2022-02-11] MEDS ORDERED: ROPIVACAINE 5 MG/ML 20 ML AMPULE ONE (11:14)
[2022-02-11] MEDS ORDERED: SODIUM CHLORIDE 0.9% 100 ML BAG ONE (11:14)
[2022-02-11] MEDS ORDERED: fentaNYL (PF) 50 MCG/ML 5 ML AMP ONE (11:14)
--- NOTE | 2022-02-11 14:53 | P.HPOB ---
History of Present Illness H&P Date: 02/11/22 Chief Complaint: IUP at 39 0/7 weeks This is a 31-year-old 3 para 1011 that presented to labor and delivery at 39 0/7 weeks. Estimated due date of 02/18. Patient has been receiving routine care with myself which has been essentially uncomplicated. Patient notes good movement notes an occasional contraction denies loss of fluid or vaginal bleeding. On bloodwork this patient is a blood type of O+, rubella status immune, B surface antigen negative, HIV negative, RPR is nonreactive, group beta strep culture negative. 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, brain cyst History of Any Multi-Drug Resistant Organisms: None Reported Past Surgical History: No Surgical Hx Reported Additional Past Surgical History / Comment(s): tarsal tunnel release, Past Anesthesia/Blood Transfusion Reactions: No Reported Reaction Past Psychological History: Anxiety Smoking Status: Never smoker Past Alcohol Use History: Occasional Past Drug Use History: None Reported - Past Family History Father Family Medical History: No Reported History, Congestive Heart Failure (CHF) Medications and Allergies Home Medications Medication Instructions Recorded Confirmed Type Vit No.179/Iron/Folic 1 tab PO DAILY 11/22/21 11/22/21 History [ Tablet] Allergies Allergy/AdvReac Type Severity Reaction Status Date / Time house dust Allergy Unknown Verified 02/11/22 07:09 kiwi Allergy Swelling Verified 11/22/21 19:12 Sulfa (Sulfonamide Allergy Rash/Hives Verified 11/22/21 19:12 Antibiotics) Exam Osteopathic Statement: *. No significant issues noted on an osteopathic structural exam other than those noted in the History and Physical/Consult. 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 On cervical exam she is 3/thick/-3 station amniotomy is performed and clear fluid was obtained. Results Result Diagrams: 02/11/22 06:52 Assessment and Plan (1) Term Current Visit: No Status: Acute Code(s): Z34.90 - ENCNTR FOR SUPRVSN OF NORMAL , UNSP, UNSP TRIMESTER SNOMED Code(s): 86739027 Plan: 31-year-old 3 para 1011 at 39-0/7 weeks that presents for elective induc tion of labor. Patient is admitted to labor and delivery and Pitocin induction of labor is begun, amniotomy is performed and clear fluid was obtained. For analgesia are discussed including Stadol and epidural. Patient will consider. States spontaneous vaginal delivery.
[2022-02-11] MEDS ORDERED: BENZOCAINE/MENTHOL SPRAY 1 GM/SPRAY AEROSOL TOPICAL PRN (14:56)
[2022-02-11] MEDS ORDERED: diphenhydrAMINE 50 MG/ML 1 ML VIAL IVP PRN ×2 (14:56)
[2022-02-11] MEDS ORDERED: HYDROCORTISONE 2.5% RECTAL CREAM 30 GM TUBE RECTAL PRN (14:56)
[2022-02-11] MEDS ORDERED: diphenhydrAMINE 25 MG CAP PO PRN (14:56)
[2022-02-11] MEDS ORDERED: LANOLIN CREAM 5 GM TUBE TOPICAL PRN (14:56)
[2022-02-11] MEDS ORDERED: diphenhydrAMINE 50 MG CAP PO PRN (14:56)
[2022-02-11] MEDS ORDERED: SIMETHICONE 80 MG CHEWABLE PO PRN (14:56)
[2022-02-11] MEDS ORDERED: ZOLPIDEM 5 MG TAB PO PRN (14:56)
--- NOTE | 2022-02-11 14:56 | P.PROBDLV ---
Vaginal Delivery Note - . Vaginal Delivery Note: 31-year-old 3 now para 1011 that presented to labor and delivery at 39 weeks of gestation for elective induction of labor. Patient was admitted and Pitocin induction of labor was begun. Amniotomy was performed and clear fluid was obtained. Patient made progress through labor eventually becoming uncomfortable and requesting epidural placement. Epidural was placed without difficulty by the anesthesia department. Patient progressed to complete and with excellent maternal effort brought the down to a presentation, with additional pushes the anterior/posterior shoulder was delivered, followed by the body. The infant was then placed in the maternal abdomen. Spontaneous cry was noted at . After two-minute delayed the umbo cord was doubly clamped and cut and the placenta was delivered spontaneously intact with a three-vessel cord being noted. Cord blood was taken. On inspection the patient's vaginal vault a first-degree vaginal laceration was appreciated this was repaired in the usual fashion with 3-0 repeat after instill ation of lidocaine. Uterus was noted to be slightly boggy and above the umbilicus manual extraction revealed numerous clots. Bladder was drained for approximately 200 mL of clear yellow urine via Red rubber catheter. Uterus was noted to be at the umbilicus after drainage. On inspection the patient's vaginal laceration a small amount of oozing was appreciated separate nature was applied and hemostasis was appreciated. All counts were noted be correct 2 at the end of the delivery. Estimated blood loss 100 mL Patient and infant tolerated delivery well and are resting comfortably Viable male delivered at 1431, weight of 7 lbs. 15 oz., Apgars of 8 and 9 at one and 5 minutes respectively.
[2022-02-11] MEDS: IBUPROFEN 600 MG TAB PO SCH ×2 (16:00→22:47)
[2022-02-11] MEDS: ACETAMINOPHEN TAB 325 MG TAB PO PRN (19:52)
[2022-02-11] MEDS: SENNOSIDES-DOCUSATE SODIUM 1 EACH TAB PO SCH (19:53)
[2022-02-12] MEDS: ACETAMINOPHEN TAB 325 MG TAB PO PRN ×2 (04:14→12:37)
[2022-02-12] MEDS: IBUPROFEN 600 MG TAB PO SCH ×2 (04:18→08:05)
[2022-02-12] MEDS: SENNOSIDES-DOCUSATE SODIUM 1 EACH TAB PO SCH (08:05)
[2022-02-12 08:35] VITALS: BP 104/70; PULSE 94; RESP 16; TEMP 98.1
--- NOTE | 2022-02-12 08:38 | P.DS ---
Providers Date of admission: 02/11/22 06:19 Expected date of discharge: 02/12/22 Attending physician: Jess Kinney Primary care physician: Stated None - Discharge Diagnosis(es) (1) Term Current Visit: No Status: Acute (2) Obstetric vaginal laceration with first degree perineal laceration Current Visit: Yes Status: Acute (3) Status post vaginal delivery Current Visit: No Status: Acute Hospital Course: This is a 31-year-old 3 now para 2012 that presented to labor and delivery yesterday at 39 weeks of gestation for elective induction of labor. Patient had been receiving routine care which is been essentially uncomplicated. Patient elected induction of labor. Patient was admitted to labor and delivery and Pitocin induction of labor was begun per hospital protocol. Amniotomy was performed and clear fluid was obtained. Patient made progress through labor eventually becoming uncomfortable and requesting epidural placement. Epidural was placed without difficulty by the anesthesia department. Patient progressed through labor eventually becoming complete began pushing and had a normal spontaneous vaginal delivery of a viable male infant at 1431, weight of 7 lbs. 15 oz., Apgars of 8 and 9 at one and 5 minutes respectively. Patient did sustain a first-degree vaginal laceration which was repaired in the usual fashion with 3-0 Rapide. Patient has done well . On this day #1 she is ambulating and voiding without difficulty. She is tolerating a regular diet without nausea or vomiting. Her lochia is minimal. She denies concerns and would like discharge home at 24 hours if is discharged along with mom. Patient Condition at Discharge: Good Plan - Discharge Summary New Discharge Prescriptions: No Action Vit No.179/Iron/Folic [ Tablet] 1 tab PO DAILY Discharge Medication List Vit No.179/Iron/Folic [ Tablet] 1 tab PO DAILY 11/22/21 [History] Follow up Appointment(s)/Referral(s): Jess Kinney DO [Doctor of Osteopathic Medicine] - 4 Weeks Patient Instructions/Handouts: Vaginal Delivery (DC), Vaginal Delivery (GEN) Discharge Disposition: HOME SELF-CARE
== END 2022-02-12 15:35 | disposition home or self-care (01) | DRG 807 ==
LOC: 4FBP 06:19
PROVIDERS: ADMIT Obstetrics & Gynecology Obstetrics; ATTEND Obstetrics & Gynecology Obstetrics
PROC: 10E0XZZ Delivery of Products of Conception, External Approach (ICD-10-PCS; principal; 2022-02-11)
PROC: 00HU33Z Insertion of Infusion Device into Spinal Canal, Percutaneous Approach (ICD-10-PCS; principal; 2022-02-11)
PROC: 0HQ9XZZ Repair Perineum Skin, External Approach (ICD-10-PCS; principal; 2022-02-11)
PROC: 10907ZC Drainage of Amniotic Fluid, Therapeutic from Products of Conception, Via Natural or Artificial Opening (ICD-10-PCS; principal; 2022-02-11)
PROC: 3E0R3NZ Introduction of Analgesics, Hypnotics, Sedatives into Spinal Canal, Percutaneous Approach (ICD-10-PCS; principal; 2022-02-11)
PROC: 3E033VJ Introduction of Other Hormone into Peripheral Vein, Percutaneous Approach (ICD-10-PCS; principal; 2022-02-11)
DX: O99.344 Other mental disorders complicating childbirth (principal); Z37.0 Single live birth; F41.9 Anxiety disorder, unspecified; O70.0 First degree perineal laceration during delivery; Z3A.39 39 weeks gestation of pregnancy; N85.8 Other specified noninflammatory disorders of uterus; Z28.311 Partially vaccinated for COVID-19; Z28.21 Immunization not carried out because of patient refusal; Z88.2 Allergy status to sulfonamides
CPT/HCPCS: 85025; 86850; 86900; 86901

== ENCOUNTER 2024-05-12 06:13 | Day surgery (SDC) | payer BC ==
[~2024-05-12 06:13] MED LIST: LIDOCAINE 1% (10MG/ML) FOR IV START INTRADERMA PRN; Pre Op ABX Message 1 EACH MISC MISCELLANE ONE
[2024-05-12] MEDS ORDERED: HYDROmorphone 0.5 MG/0.5 ML SYRINGE IVP PRN (07:00)
[2024-05-12] MEDS ORDERED: MIDAZOLAM 2 MG/2 ML VIAL IV PRN (07:00)
[2024-05-12] MEDS ORDERED: fentaNYL (PF) 50 MCG/ML 2 ML AMP IVP PRN (07:00)
[2024-05-12] MEDS: ONDANSETRON 4 MG/2 ML VIAL IVP ONE (07:03)
[2024-05-12] MEDS: LACTATED RINGERS 1,000 ML IV SCH (07:04)
[2024-05-12] MEDS: DEXAMETHASONE SOD PHOSPHATE 4 MG/ML 1 ML VIAL IV ONE (07:04)
[2024-05-12] MEDS: IV FLUID CONTINUATION 1,000 ML IV ONE ×2 (07:13→08:01)
[2024-05-12] MEDS ORDERED: KETOROLAC 15 MG/ML 1 ML VIAL ONE (07:24)
[2024-05-12] MEDS ORDERED: PROPOFOL 10 MG/ML 20 ML VIAL IV ONE (07:24)
[2024-05-12] MEDS ORDERED: fentaNYL (PF) 50 MCG/ML 2 ML AMP ONE (07:24)
[2024-05-12] MEDS ORDERED: LIDOCAINE 1% INJ 10MG/ML (20 ML MDV) ONE (07:24)
[2024-05-12] MEDS: SILVER NITRATE APPLICATOR 1 EACH STICK..EA. TOPICAL ONE (07:45)
--- NOTE | 2024-05-12 08:04 | P.OP ---
Date of Procedure: 05/12/24 Preoperative Diagnosis: Heavy menstrual bleeding Postoperative Diagnosis: Same Procedure(s) Performed: Hysteroscopy, dilation and curettage, endometrial ablation, NovaSure Anesthesia: MAC Surgeon: Jess Kinney Estimated Blood Loss (ml): 10 IV fluids (ml): 400 Urine output (ml): 50 Pathology: other (Endometrial curettings) Condition: stable Disposition: PACU Indications for Procedure: Heavy menstrual bleeding. Patient's note cycles to be every 28 days with heavy flow lasting 7 days, ultrasound revealing normal uterine size at 9 x 6 x 4. Operative Findings: Proliferative endometrium Description of Procedure: Patient was taken back to the operating suite where general anesthesia was obtained without difficulty by the anesthesia department. She was prepped and draped in normal sterile fashion in the dorsolithotomy position. Red rubber catheter was used to drain the bladder clear yellow urine. Weighted speculum was placed in the posterior vaginal vault, anterior lip of the cervix was visualized and grasped with a single-tooth tenaculum. Endocervical canal was then serially dilated, hysteroscope was placed through the cervix and toward the endometrial cavity, endometrial cavity was noted to be intact with a proliferative endometrium. Hysteroscope was removed. A sharp curettage was then performed until a gritty texture was noted in all 4 quadrants of the endometrial cavity. NovaSure was opened and set to the appropriate measurements for the patient's cavity with a length of 5, width of 3.7 after cavity assessment was passed a power of 102 for a total of 1 minute 25 seconds. NovaSure was then removed without difficulty after cycle was completed. Single- tooth tenaculum was taken off of the anterior lip the cervix. A small amount of bleeding was noted therefore silver nitrate was used to obtain hemostasis. All instruments were removed from the patient's vaginal vault. All counts were noted be correct x 2. Patient tolerated procedure well. Patient was taken the recovery room awake in stable condition.
[2024-05-12 08:07] VITALS: TEMP 97.6
[2024-05-12 08:48] VITALS: RESP 18
[2024-05-12 09:04] VITALS: BP 113/76; PULSE 88
[2024-05-12] MEDS: IBUPROFEN 600 MG TAB PO STA (09:06)
== END 2024-05-12 09:27 | disposition home or self-care (01) ==
LOC: OR 06:13
PROVIDERS: ATTEND Obstetrics & Gynecology Obstetrics
DX: N92.0 Excessive and frequent menstruation with regular cycle (principal); N94.6 Dysmenorrhea, unspecified; Z88.2 Allergy status to sulfonamides; Z91.018 Allergy to other foods; Z88.8 Allergy status to other drugs, medicaments and biological substances
CPT/HCPCS: 81025; 58563; J1100; J2405; J2003; J3010; J1885; J2704; 88305

== ENCOUNTER → 2024-06-13 | Outpatient (CLI) | payer BC ==
--- NOTE | 2024-06-13 11:35 | MM ---
Reason for Exam: Clinical finding. Baseline mammogram. Indicated Problems: Lump or thickening of the left side for 2 Month(s). Pain of both sides (Global) for 6 Month(s) : off and on. Patient History: Menarche at age 17. First Full-Term at age 28. Patient has history of breast feeding. Patient used Hormonal Contraceptives for 6 years. Mother had breast cancer at or over age 50. Prior Study Comparison: Patient's first Mammogram. Tissue Density: The breasts are heterogeneously dense, which may obscure small masses. Findings: Analyzed By CAD. No suspicious focal mass or worrisome cluster of microcalcification in either breast. Overall Assessment: Incomplete: need additional imaging evaluation, BI-RAD 0 Management: Diagnostic Breast Ultrasound of the left breast. Targeted ultrasound palpable abnormality left breast. Results were given to the patient verbally at the time of exam. Patient should continue monthly self-breast exams. A clinical breast exam by your physician is recommended on an annual basis. This exam should not preclude additional follow-up of suspicious palpable abnormalities. Note on Lucrecia scores and lifetime risk: 1. A Lucrecia score greater than 3% is considered moderate risk. If this is the case, consider specialist referral to assess eligibility for a risk reducing agent. 2. If overall lifetime risk for the development of breast cancer is 20% or higher, the patient may qualify for future screening with alternating mammogram and breast MRI. [facility], , 06/13/2024 11:32 AM. Electronically signed and approved by: Benton Bernal M.D.
--- NOTE | 2024-06-13 12:20 | USB ---
Reason for Exam: Clinical finding. Patient History: Menarche at age 17. First Full-Term at age 28. Patient has history of breast feeding. Patient used Hormonal Contraceptives for 6 years. Mother had breast cancer at or over age 50. Technique: Method: Targeted. Findings: The area of palpable concern of the left breast, the axilla of both breasts and the retroareolar of the left breast were scanned. Targeted bilateral ultrasound is performed. No solid or cystic masses are identified. No suspicious focal fluid collections. Overall Assessment: Negative, BI-RAD 1 Management: Screening Mammogram of both breasts at age 42. Manage patient's symptoms clinically. Return for further imaging if symptoms change. A clinical breast exam by your physician is recommended on an annual basis and results should be correlated with mammographic findings. This exam should not preclude additional follow-up of suspicious palpable abnormalities. Results were given to the patient verbally at the time of exam. [facility], , 06/13/2024 12:16 PM. Electronically signed and approved by: Benton Bernal M.D.
== END | disposition home or self-care (01) ==
LOC: RADMAMWWP 10:55
PROVIDERS: ATTEND Obstetrics & Gynecology Obstetrics
DX: R92.333 Mammographic heterogeneous density, bilateral breasts (principal); N64.4 Mastodynia; Z92.0 Personal history of contraception; Z80.3 Family history of malignant neoplasm of breast
CPT/HCPCS: 77062; 77066